=== PATIENT | female | born 1980 | race Caucasian/White ===

== ENCOUNTER → 2016-10-27 | Outpatient (CLI) | payer BC, OTHER ==
[~2016-10-27] MED LIST: CETI10TA10 PO; CITA40TA12 PO; FAMO20TA9 PO; LEVO112T2 PO; PANT40TA PO; VITACAP26 PO
[2016-10-27 17:55] LABS: THYROID STIMULATING HORMONE 0.174 uIu/ml (0.300-4.500)
[2016-10-29 12:40] LABS: THYROGLOBULIN <0.1 NG/ML (2.8-40.9)
== END | disposition home or self-care (01) ==
LOC: C.LAB1850 16:44
PROVIDERS: ATTEND Internal Medicine Endocrinology, Diabetes & Metabolism
DX: C73 Malignant neoplasm of thyroid gland (principal)